=== PATIENT | male | born 1970 | race African-American/Black ===

== ENCOUNTER 2023-05-09 13:42 | Outpatient (REF) | payer OTHER, SELFPAY ==
--- NOTE | ~2023-05-09 | XR_ITS ---
EXAMINATION: XR ELBOW, BILATERAL XR CERVICAL SPINE CLINICAL INFORMATION: Pain bilateral elbows and cervical spine region. COMPARISON: None available. TECHNIQUE: 3 views of right elbow, 3 views left elbow, 3 view cervical spine. FINDINGS: Right Elbow: Bone mineralization is normal. Alignment is preserved. No significant joint effusion. No displaced fracture appreciated. Left Elbow: No significant joint effusion. Bone mineralization is normal. Alignment is preserved. No displaced fracture appreciated. Cervical Spine: Curvilinear wire-like device projects over the soft tissues along the posterior central neck, likely external to the patient, and recommend correlation with clinical exam for confirmation. Moderate multilevel cervical spondylosis with multilevel loss of disc space height most notable at C4-C5 and C5-C6. XR/XR cervical spine 2V IMPRESSION: 1. Moderate multilevel cervical spondylosis most notable at C4-C5 and C5-C6. 2. No displaced fracture of the bilateral elbows appreciated. Recommend follow-up imaging in 10-14 days if fracture is suspected.
--- NOTE | ~2023-05-09 | XR_ITS ---
EXAMINATION: XR ELBOW, BILATERAL XR CERVICAL SPINE CLINICAL INFORMATION: Pain bilateral elbows and cervical spine region. COMPARISON: None available. TECHNIQUE: 3 views of right elbow, 3 views left elbow, 3 view cervical spine. FINDINGS: Right Elbow: Bone mineralization is normal. Alignment is preserved. No significant joint effusion. No displaced fracture appreciated. Left Elbow: No significant joint effusion. Bone mineralization is normal. Alignment is preserved. No displaced fracture appreciated. Cervical Spine: Curvilinear wire-like device projects over the soft tissues along the posterior central neck, likely external to the patient, and recommend correlation with clinical exam for confirmation. Moderate multilevel cervical spondylosis with multilevel loss of disc space height most notable at C4-C5 and C5-C6. XR/XR elbow RT min 3V IMPRESSION: 1. Moderate multilevel cervical spondylosis most notable at C4-C5 and C5-C6. 2. No displaced fracture of the bilateral elbows appreciated. Recommend follow-up imaging in 10-14 days if fracture is suspected.
--- NOTE | ~2023-05-09 | XR_ITS ---
EXAMINATION: XR ELBOW, BILATERAL XR CERVICAL SPINE CLINICAL INFORMATION: Pain bilateral elbows and cervical spine region. COMPARISON: None available. TECHNIQUE: 3 views of right elbow, 3 views left elbow, 3 view cervical spine. FINDINGS: Right Elbow: Bone mineralization is normal. Alignment is preserved. No significant joint effusion. No displaced fracture appreciated. Left Elbow: No significant joint effusion. Bone mineralization is normal. Alignment is preserved. No displaced fracture appreciated. Cervical Spine: Curvilinear wire-like device projects over the soft tissues along the posterior central neck, likely external to the patient, and recommend correlation with clinical exam for confirmation. Moderate multilevel cervical spondylosis with multilevel loss of disc space height most notable at C4-C5 and C5-C6. XR/XR elbow LT min 3V IMPRESSION: 1. Moderate multilevel cervical spondylosis most notable at C4-C5 and C5-C6. 2. No displaced fracture of the bilateral elbows appreciated. Recommend follow-up imaging in 10-14 days if fracture is suspected.
== END 2023-05-09 13:43 | disposition home or self-care (01) ==
LOC: HO.XRAY 13:42
PROVIDERS: Visit Provider Specialist
DX: M25.521 Pain in right elbow (principal); M25.522 Pain in left elbow; M53.82 Other specified dorsopathies, cervical region
CPT/HCPCS: 72040; 73080